=== PATIENT | male | born 1975 | race Caucasian/White ===

== ENCOUNTER 2017-05-01 16:44 | Emergency (ER) | payer OTHER ==
[~2017-05-01] VITALS: Ht 195.6 cm; Wt 115.7 kg
[~2017-05-01 16:44] MED LIST: CLONAZEPAM0.5 MG PO; DICLOFENAC SOD100 MG PO; FLUOXETINE HCL20 MG PO; HYDROCODON-ACE1 EA10 PO; OMEPRAZOLE20 MG PO
== END 2017-05-01 18:53 | disposition home or self-care (01) ==
LOC: ED 16:44
DX: S63.614A Unspecified sprain of right ring finger, initial encounter (principal); F32.9 Major depressive disorder, single episode, unspecified; F41.9 Anxiety disorder, unspecified; K21.9 Gastro-esophageal reflux disease without esophagitis; Z88.2 Allergy status to sulfonamides; Z88.1 Allergy status to other antibiotic agents; Z88.5 Allergy status to narcotic agent; Z79.899 Other long term (current) drug therapy; W22.8XXA Striking against or struck by other objects, initial encounter
CPT/HCPCS: 73140; 99283

== ENCOUNTER 2017-09-01 17:33 | Emergency (ER) | payer OTHER ==
[~2017-09-01] VITALS: Ht 195.6 cm; Wt 115.7 kg
[2017-09-01] MEDS ORDERED: ACETAMINOPHEN-1 EAC2 PO (17:42)
== END 2017-09-01 17:47 | disposition home or self-care (01) ==
LOC: ED 17:33
DX: M54.5 Low back pain (principal)

== ENCOUNTER 2019-10-20 17:10 | Emergency (ER) | payer BC, OTHER ==
[~2019-10-20] VITALS: Ht 195.6 cm; Wt 117.9 kg
[~2019-10-20 17:10] MED LIST changes: +ACETAMINOPHEN-1 EAC2 PO
[2019-10-20] MEDS ORDERED: DICLOFENAC POTA50 MG PO (17:19)
[2019-10-20] MEDS ORDERED: PROZAC10 MG PO (17:20)
[2019-10-20] MEDS ORDERED: CYCLOBENZAPRINE10 MG PO (17:20)
[2019-10-20] MEDS ORDERED: REGLAN10 MG PO (19:19)
== END 2019-10-20 19:26 | disposition home or self-care (01) ==
LOC: ED 17:10
DX: G43.909 Migraine, unspecified, not intractable, without status migrainosus (principal); F32.9 Major depressive disorder, single episode, unspecified; F41.9 Anxiety disorder, unspecified; Z88.2 Allergy status to sulfonamides; Z88.5 Allergy status to narcotic agent; Z88.1 Allergy status to other antibiotic agents; Z79.899 Other long term (current) drug therapy
CPT/HCPCS: 96374; 96375; 99283-25; J1100; J1200; J1885; J2765; J7030

== ENCOUNTER 2020-01-03 11:10 | Emergency (ER) | payer OTHER, BC ==
[~2020-01-03] VITALS: Ht 195.6 cm; Wt 117.9 kg
[~2020-01-03 11:10] MED LIST changes: +CYCLOBENZAPRINE10 MG PO; +DICLOFENAC POTA50 MG PO; +PROZAC10 MG PO; +REGLAN10 MG PO
--- OUTSIDE RECORDS SUMMARY | 2020-01-03 11:14 | XMS ---
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 [facility] VISIT COUNT (12 MO.) 2 [facility] TOTAL 2 NOTE: Visits indicate total known visits. 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
[2020-01-03] MEDS ORDERED: ACETAMINOPHEN-1 EAC2 PO (11:23)
[2020-01-03] MEDS ORDERED: FLUOXETINE HCL20 MG PO (11:23)
[2020-01-03] MEDS ORDERED: CLONAZEPAM0.5 MG PO (11:23)
== END 2020-01-03 12:43 | disposition home or self-care (01) ==
LOC: ED 11:10
DX: T24.432A Corrosion of unspecified degree of left lower leg, initial encounter (principal); T24.401A Corrosion of unspecified degree of unspecified site of right lower limb, except ankle and foot, initial encounter; T24.402A Corrosion of unspecified degree of unspecified site of left lower limb, except ankle and foot, initial encounter; T32.0 Corrosions involving less than 10% of body surface; F32.9 Major depressive disorder, single episode, unspecified; F41.9 Anxiety disorder, unspecified; K21.9 Gastro-esophageal reflux disease without esophagitis; G43.909 Migraine, unspecified, not intractable, without status migrainosus; Z87.891 Personal history of nicotine dependence; Z88.2 Allergy status to sulfonamides; Z88.1 Allergy status to other antibiotic agents; Z88.5 Allergy status to narcotic agent; Z79.899 Other long term (current) drug therapy
CPT/HCPCS: 99283

== ENCOUNTER 2020-02-28 17:40 | Emergency (ER) | payer BC, OTHER ==
[~2020-02-28] VITALS: Ht 195.6 cm; Wt 117.9 kg
--- OUTSIDE RECORDS SUMMARY | 2020-02-28 17:42 | XMS ---
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 [facility] VISIT COUNT (12 MO.) 3 [facility] TOTAL 3 NOTE: Visits indicate total known visits. ED/UCC VISIT TRACKING (12 MO.) 02/28/2020 17:40 [facility] TYPE: Emergency COMPLAINT: - POSSIBLE BROKEN RIB 01/03/2020 11:13 [facility] TYPE: Emergency COMPLAINT: - BURN/ LEG INJURY DIAGNOSES: - Other jail (current) drug therapy - Migraine, unspecified, not intractable, without status migrainosus - Personal history of nicotine dependence - Corrosion of unspecified degree of left lower leg, initial encounter - Anxiety disorder, unspecified - Allergy status to other antibiotic agents - Allergy status to sulfonamides - Gastro-esophageal reflux disease without esophagitis - Corrosion of unspecified degree of unspecified site of right lower limb, except ankle and foot, initial encounter - Corrosion of unspecified degree of unspecified site of left lower limb, except ankle and foot, initial encounter - Major depressive disorder, single episode, unspecified - Allergy status to narcotic agent - Corrosion of unspecified degree of left lower leg, initial encounter - Corrosions involving less than 10% of body surface 10/20/2019 17:11 [facility] TYPE: Emergency COMPLAINT: - HEADACHE DIAGNOSES: - Allergy status to other antibiotic agents - Allergy status to sulfonamides - Allergy status to narcotic agent - Major depressive disorder, single episode, unspecified - 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
== END 2020-02-28 20:34 | disposition home or self-care (01) ==
LOC: ED 17:40
DX: R10.11 Right upper quadrant pain (principal); Z87.891 Personal history of nicotine dependence; K21.9 Gastro-esophageal reflux disease without esophagitis; G43.909 Migraine, unspecified, not intractable, without status migrainosus; Z88.1 Allergy status to other antibiotic agents; Z88.2 Allergy status to sulfonamides; Z88.5 Allergy status to narcotic agent; Z79.899 Other long term (current) drug therapy
CPT/HCPCS: 76705; 80053; 81001; 83690; 85025; 96374; 99284-25; J1885

== ENCOUNTER 2020-09-04 19:06 | Emergency (ER) | payer BC, OTHER ==
[~2020-09-04] VITALS: Ht 195.6 cm; Wt 117.9 kg
--- OUTSIDE RECORDS SUMMARY | 2020-09-04 19:10 | XMS ---
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 [facility] VISIT COUNT (12 MO.) 4 [facility]AL[facility]HA Iss[facility] TOTAL 4 NOTE: Visits indicate total known visits. 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 - Allergy status to narcotic agent 01/03/2020 11:13 [facility] TYPE: Emergency COMPLAINT: - BURN/ LEG INJURY DIAGNOSES: - Allergy status to sulfonamides - Corrosions involving less than 10% of body surface - Corrosion of unspecified degree of left lower leg, initial encounter - Allergy status to narcotic agent - Major depressive disorder, single episode, unspecified - Corrosion of unspecified degree of unspecified site of left lower limb, except ankle and foot, initial encounter - Allergy status to narcotic agent - Corrosion of unspecified degree of unspecified site of right lower limb, except ankle and foot, initial encounter - Gastro-esophageal reflux disease without esophagitis - Other fdc (current) drug therapy - Allergy status to other antibiotic agents - Anxiety disorder, unspecified - Allergy status to other antibiotic agents - Corrosion of unspecified degree of left lower leg, initial encounter - Personal history of nicotine dependence - Allergy status to sulfonamides - Migraine, unspecified, not intractable, without status migrainosus 10/20/2019 17:[address] [facility] [place] TYPE: Emergency COMPLAINT: - HEADACHE DIAGNOSES: - Allergy status to other antibiotic agents - Allergy status to sulfonamides - Allergy status to narcotic agent - Major depressive disorder, single episode, unspecified - Other fdc (current) drug therapy - Headache - Anxiety disorder, unspecified - Migraine, unspecified, not intractable, without status migrainosus INPATIENT VISIT TRACKING (12 MO.) No inpatient visits to display in this time frame [id number]
== END 2020-09-04 20:06 | disposition home or self-care (01) ==
LOC: ED 19:06
DX: U07.1 COVID-19 (principal); G43.909 Migraine, unspecified, not intractable, without status migrainosus; Z87.891 Personal history of nicotine dependence; Z88.2 Allergy status to sulfonamides; Z88.1 Allergy status to other antibiotic agents; Z88.5 Allergy status to narcotic agent; Z79.899 Other long term (current) drug therapy
CPT/HCPCS: 99283; C9803; U0003

== ENCOUNTER 2022-02-10 11:39 | Emergency (ER) | payer BC, OTHER ==
[~2022-02-10] VITALS: Ht 195.6 cm; Wt 117.9 kg
--- OUTSIDE RECORDS SUMMARY | 2022-02-10 11:42 | XMS ---
PreManage Notification: MANUELA ARMENTA Security Political Reporter Events No recent Security Events currently on file CRITERIA MET - WINSOMEP CARE PROVIDERS TATIANNA FRANCISCO Physician Plan Coordinator Current PHONE: [phone] Denise has no Care Guidelines for this patient. [facility] VISIT COUNT (12 MO.) 1 HEMALATHA Iss[facility] TOTAL 1 NOTE: Visits indicate total known visits. ED/UCC VISIT TRACKING (12 MO.) 02/10/2022 11:39 [facility] TYPE: Emergency COMPLAINT: - EXTREMITY PAIN/INJURY INPATIENT VISIT TRACKING (12 MO.) No inpatient visits to display in this time frame [id number]
== END 2022-02-10 13:58 | disposition home or self-care (01) ==
LOC: ED 11:39
DX: S90.31XA Contusion of right foot, initial encounter (principal); K21.9 Gastro-esophageal reflux disease without esophagitis; G43.909 Migraine, unspecified, not intractable, without status migrainosus; Z87.891 Personal history of nicotine dependence; Z88.2 Allergy status to sulfonamides; Z88.1 Allergy status to other antibiotic agents; Z88.5 Allergy status to narcotic agent; Z79.899 Other long term (current) drug therapy; W22.8XXA Striking against or struck by other objects, initial encounter; Y99.0 Civilian activity done for income or pay
CPT/HCPCS: 73630; 99283-25

== ENCOUNTER 2024-01-30 18:25 | Emergency (ER) | payer BC, OTHER ==
[~2024-01-30] VITALS: Ht 195.6 cm; Wt 118.0 kg
[~2024-01-30 18:25] MED LIST changes: +DICLOFENAC SODI75 MG PO; +METHOCARBAMOL750 MG PO; +TRAMADOL HCL50 MG PO
[2024-01-30] MEDS ORDERED: ASPIRIN 81 MG CHEW PO ONE (18:45)
[2024-01-30] MEDS ORDERED: NITROGLYCERIN 0.4 MG SUBL SL PRN (18:45)
[2024-01-30 19:09] LABS: BASOPHILS 0.9 % (0-2); EOSINOPHILS 1.1 % (0-6); HEMATOCRIT 43.6 % (35.0-50.0); HEMOGLOBIN 14.6 g/dL (12.0-18.0); LYMPHOCYTES 22.1 % (24-44); MCH 29.9 (27-36); MCHC 33.6 g/dl (30-36); MCV 89.1 fl (81-99); MONOCYTES 4.6 % (0-12); NEUTROPHILS 71.3 % (39-80); PLATELET COUNT 218 K/uL (140-440); RDW 12.6 (10.5-15.0)
[2024-01-30] MEDS ORDERED: FAMOTIDINE 20 MG/ 2 ML VIAL IV ONE (19:15)
[2024-01-30 19:25] LABS: ALBUMIN 3.7 g/dL (3.4-5.0); ALBUMIN/GLOBULIN RATIO 1.09 (1.1-2.4); ANION GAP 12.2 (7-21); BILIRUBIN, TOTAL 0.7 ng/dL (0.2-1.0); CALCIUM 9.3 mg/dL (8.5-10.1); CREATININE, SERUM 1.25 mg/dL (0.70-1.30); MAGNESIUM 1.9 mg/dL (1.8-2.4); POTASSIUM 4.2 mmol/L (3.5-5.1); PROTEIN, TOTAL 7.1 g/dL (6.4-8.2)
[2024-01-30 20:36] VITALS: BP 136/92
--- NOTE | 2024-02-01 11:36 | EKG ---
[facility] [address] [facility] [place] [address] Signed Normal sinus rhythm Normal ECG No previous ECGs available Confirmed by Loraine Riojas MD ([id number]) on 02/01/2024 11:36:10 AM Electronically Signed By: LORAINE RIOJAS MD 02/01/24 1136 PATIENT NAME: MANUELA ARMENTA Electrocardiogram DATE OF : 77 PHYSICIAN: LORAINE RIOJAS MD REPORT #: [id number] REPORT IS CONFIDENTIAL AND NOT TO BE RELEASED WITHOUT AUTHORIZATION
== END 2024-01-30 20:36 | disposition home or self-care (01) ==
LOC: ED 18:25
PROVIDERS: Emergency Medicine
DX: R07.2 Precordial pain (principal); Z87.891 Personal history of nicotine dependence; Z88.2 Allergy status to sulfonamides; Z88.1 Allergy status to other antibiotic agents; Z88.5 Allergy status to narcotic agent; Z79.899 Other long term (current) drug therapy
CPT/HCPCS: 36415; 71045; 80053; 83735; 84484; 85025; 93005; 93010; 96374; 99285-25; A9270